=== PATIENT | female | born 1960 | race Caucasian/White ===

== ENCOUNTER 2018-01-27 07:41 | Emergency (ER) | payer OTHER ==
[2018-01-27 08:20] LABS: BASOPHILS % (AUTO) 0.5 %; EOSINOPHILS # (AUTO) 0.3 10^3/uL (0.0-0.7); EOSINOPHILS % (AUTO) 4.7 %; HGB - HEMOGLOBIN 15.1 g/dL (12.0-16.0); LYMPHOCYTES # (AUTO) 2.5 10^3/uL (1.5-3.5); LYMPHOCYTES % (AUTO) 34.3 %; MEAN CORPUSCULAR HEMOGLOBIN 28.9 pg (27.0-31.0); MEAN CORPUSCULAR HGB CONC 34.4 g/dL (32.0-36.0); MEAN CORPUSCULAR VOLUME 84.1 fL (81.0-99.0); MEAN PLATELET VOLUME 6.9 fL (7.9-10.8); MONOCYTES # (AUTO) 0.4 10^3/uL (0.0-1.0); MONOCYTES % (AUTO) 5.9 %; NEUTROPHILS % (AUTO) 54.6 %; PLT - PLATELET COUNT 321 10^3/uL (130-450); RED BLOOD COUNT 5.21 10^6/uL (4.20-5.40); RED CELL DISTRIBUTION WIDTH 13.7 % (12.0-15.0); WHITE BLOOD COUNT 7.3 x10^3/uL (4.8-10.8)
[2018-01-27] MEDS ORDERED: LIDOCAINE VISCOUS 2% 15 ML UDC MM STA (08:27)
[2018-01-27] MEDS ORDERED: MAG HYDROX/AL HYDROX/SIMETH 30 ML UDC PO STA (08:27)
[2018-01-27 08:29] LABS: ALBUMIN 4.2 g/dL (3.2-5.5); ALBUMIN/GLOBULIN RATIO 1.3 (1.0-2.2); BILIRUBIN,TOTAL 0.4 mg/dL (0.2-1.0); CALCIUM 8.9 mg/dL (8.5-10.3); CREATININE 0.6 mg/dL (0.4-1.0); TOTAL PROTEIN 7.5 g/dL (6.7-8.2)
--- NOTE | 2018-01-27 08:54 | XRAY Report ---
Reason: chest pain Procedure Date: 01/27/2018 Accession Number: [id number] / [id number] Procedure: XR - Chest 1 View X-Ray CPT Code: 90151 FULL RESULT: EXAM: CHEST RADIOGRAPHY EXAM DATE: 01/27/2018 08:18 AM. CLINICAL HISTORY: Chest pain. COMPARISON: None. TECHNIQUE: 1 view. FINDINGS: Lungs/Pleura: There is mild hazy bibasilar opacity. No other focal airspace opacity. No pleural effusion or pneumothorax. Mediastinum: Cardiomediastinal silhouette and pulmonary vasculature are within normal limits. Other: None. IMPRESSION: Suspect mild bibasilar atelectasis. Otherwise no acute cardiopulmonary abnormality. RADIA
[2018-01-27 09:23] VITALS: BP 116/88
--- NOTE | 2018-01-27 09:43 | ED Physician Documentation ---
PD HPI CHEST PAIN - Stated complaint Stated Complaint: CHEST PX/DIZZY - Chief complaint Chief Complaint: Cardiac - History obtained from History obtained from: Patient, Family - History of Present Illness Timing - onset: Enter time (629), Today Timing - onset during: Sleep Timing - duration: Minutes Timing - details: Abrupt onset, Still present Quality: Pressure, Sharp, Pain Location: Substernal, Epigastric Radiation: Abdominal. No: Jaw, Neck, Back Worsened by: No: Exertion, Inspiration Associated symptoms: Feeling faint / dizzy (dizzy). No: Shortness of air, Diaphoresis, Nausea, Vomiting Similar symptoms before: Diagnosis (gerd) Recently seen: Not recently seen - Additional information Additional information: 57-year-old female with history of reflux has awakened this morning with severe chest pain and she feels that this is worse than her usual heartburn and she is concerned about the possibility of this being her heart. Review of Systems Constitutional: denies: Fever, Chills Eyes: denies: Decreased vision Ears: denies: Ear pain Nose: denies: Congestion Throat: denies: Sore throat Cardiac: reports: Chest pain / pressure. denies: Palpitations Respiratory: denies: Dyspnea, Cough GI: reports: Abdominal Pain. 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 - Present Medications Home Medications: Ambulatory Orders Medication Instructions Recorded Confirmed Pantoprazole [Protonix] 40 mg PO 01/27/18 Sucralfate [Carafate] 1 gm PO ACHS #60 tablet 01/27/18 - Allergies Allergies/Adverse Reactions: Allergies Allergy/AdvReac Type Severity Reaction Status Date / Time No Known Drug Allergies Allergy Verified 01/27/18 07:52 - Social History Does the pt smoke?: No Smoking Status: Never smoker Does the pt drink ETOH?: No Does the pt have substance abuse?: No - Immunizations Immunizations are current?: Yes PD ED PE NORMAL - Vitals Vital signs reviewed: Yes (hypertensive ) - General General: Alert and oriented X 3, No acute distress, Well developed/nourished - HEENT HEENT: Atraumatic, PERRL, EOMI - Neck Neck: Supple, no meningeal sign, No bony TTP - Cardiac Cardiac: RRR, No murmur - Respiratory Respiratory: No respiratory distress, Clear bilaterally - Abdomen Abdomen: Soft, Non tender - Back Back: No CVA TTP, No spinal TTP - Derm Derm: Normal color, Warm and dry, No rash - Extremities Extremities: No deformity, No edema - Neuro Neuro: Alert and oriented X 3, 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, No motor deficit, No sensory deficit, Normal speech Eye Opening: Spontaneous Motor: Obeys Commands Verbal: Oriented GCS Score: 15 - Psych Psych: Normal mood, Normal affect Results - Vitals Vitals: Vital Signs - 24 hr 01/27/18 01/27/18 01/27/18 07:45 08:00 08:33 Temperature 36.7 C Heart Rate 60 71 60 Respiratory 16 24 14 Rate Blood Pressure 118/106 H 143/95 H 121/75 O2 Saturation 99 96 96 01/27/18 09:22 Temperature Heart Rate 67 Respiratory 18 Rate Blood Pressure 116/88 H O2 Saturation 95 Oxygen O2 Source Room air - EKG (time done) 0747 Rate: Rate (enter#) (58) Rhythm: NSR Ischemia: Non specific changes Compare to prior EKG: Old EKG unavailable Computer interpretation: Agree with computer - Labs Labs: Laboratory Tests 01/27/18 01/27/18 01/27/18 07:59 07:59 07:59 WBC 7.3 RBC 5.21 Hgb 15.1 Hct 43.9 MCV 84.1 MCH 28.9 MCHC 34.4 RDW 13.7 Plt Count 321 MPV 6.9 L Neut # (Auto) 4.0 Lymph # (Auto) 2.5 [place] # (Auto) 0.4 Eos # (Auto) 0.3 Baso # (Auto) 0.0 Absolute Nucleated RBC 0.00 Nucleated RBC % 0.0 Sodium 138 Potassium 3.9 Chloride 105 Carbon Dioxide 25 Anion Gap 8.0 BUN 14 Creatinine 0.6 Estimated GFR (MDRD) 103 Glucose 98 Calcium 8.9 Total Bilirubin 0.4 AST 23 ALT 29 Alkaline Phosphatase 83 Troponin I < 0.04 Total Protein 7.5 Albumin 4.2 Globulin 3.3 Albumin/Globulin Ratio 1.3 Lipase 34 - Rads (name of study) chest 1 view Radiology: Prelim report reviewed (Impression: Suspect mild bibasilar atelectasis. Otherwise no acute cardiopulmonary abnormality.), EMP read indepedently, See rad report PD MEDICAL DECISION MAKING - ED course Complexity details: reviewed results, re-evaluated patient, considered differential, d/w patient, d/w family ED course: Previously well 57-year-old female with a history of reflux has developed acute chest pain this morning that she feels might be her reflux. She has resolution of her pain at about the time of my evaluation and she does have return of her pain and this is promptly improved with use of viscous lidocaine and Mylanta. Her electrocardiogram and diagnostic studies are otherwise unremarkable. She is instructed in the use of Pepcid AC or H2 safia in place of her proton pump inhibitor and we will add in Carafate. Departure - Departure Disposition: 01 Home, Self Care Clinical Impression: Gastroesophageal reflux disease Qualifiers: Esophagitis presence: with esophagitis Qualified Code(s): K21.0 - Gastro- esophageal reflux disease with esophagitis Condition: Stable Instructions: ED PUD Vs Gastritis, ED GERD Follow-Up: JANETTE SWAN [Primary Care Provider] - Prescriptions: Sucralfate [Carafate] 1 gm PO ACHS #60 tablet
== END 2018-01-27 09:55 | disposition home or self-care (01) ==
LOC: ED 07:41
DX: K21.0 Gastro-esophageal reflux disease with esophagitis (principal)
CPT/HCPCS: 36415; 71045; 80053; 83690; 84484; 85025; 93005; 99284; A9270

== ENCOUNTER 2018-08-27 11:22 | Outpatient (CLI) | payer OTHER ==
[2018-08-27 12:49] VITALS: BP 100/60
--- NOTE | 2018-08-27 12:49 | CONSULTATION NOTE ---
Information from patient questionnaire entered by Cristiane Ochoa. I have reviewed and concur with the information entered by Cristiane Ochoa. This document represents the service I personally performed and the decisions made by me, Laina Carmichael MD, [facility]. - History of Present Illness Chief Complaint: Other (Eye doctor suggested due to glucoma concerns) The patient tells me that she normally goes to bed around 10:00-11:00 pm, and it takes her approximately 15-60 minutes to fall asleep. She has been told that she snores loudly and irregularly at night. She hasbeen observed to stop breathing in her sleep. Her bed partner has to sleep in another room due to the loudness of her snoring. She can recall waking up on the average of 2 times during the night. Most of the time she wakes up because of using the bathroom and gasping for air once a week. She has occasionally awakened for her own snoring, and having to gasp for air. There is not a lot of tossing and turning in her sleep. There is no somniloquy (sleep talking) or somnambulism (sleep walking). She has never experienced sleep paralysis, cataplexy, or symptoms of restless leg syndrome.Generally she can recall having dreams. She usually wakes up at 5:30-6:30 am and feels refreshed. She usually does not have a morning headache. During the day she complains of feeling sleepy and fatigued. She has fallen asleep while driving and has gone out of the yas, no accident. She does not nap during the day. If she naps, upon falling asleep during the day she admits to having vivid dreams. She denies having impaired concentration during the day. 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 Patient is and lives in [place]. Smoked in the past 12 months: No Alcohol use: No Caffeine use: Yes Amount and frequency: 1 cup a day - Family History Family history of sleep disordered breathing: Yes Family Hx Sleep Apnea: Father: Snoring, Grandparent: Snoring - Review of Systems Weight loss over past 5 years: 10 Cardiovascular: denies: high blood pressure, palpitations, chest pain, irregular heart rate or pulse, leg or foot swelling, have to sleep sitting up, other: Respiratory: denies: shortness of breath, wheeze, sputum production, chronic cough, other: Gastrointestinal: reports: heartburn, diarrhea Urinary: denies: incontinence, frequency, urgency, impotence, other: Neurological: denies: headaches, seizure, head trauma, disorientation, speech dysfunction, gait or balance problems, fainting or unconsciousness, other: Psychiatric: reports: claustrophobia Ear/Nose/Throat: reports: sinus problems, wisdom teeth removed Endocrine: denies: thyroid disease, history of goiter, sluggishness, too hot or cold, excessive thirst, increased appetite, increased urination, unexplained weakness, other: Musculoskeletal: reports: neck pain Immunologic: denies: sneezing, rash, itching, allergies to food or environment, other: - Physical Examination Vital signs obtained and documented by: Dr. Carmichael Blood Pressure: 100/60 Cuff size: regular Heart Rate: 78 O2 Saturation: 98 Height: 5 ft 4 in Weight (kg): 68.039 kg Body Mass Index: 25.7 BMI Classification: Overweight Neck circumference: 15.5 Mood/affect: normal HEENT: No craniofacial malformation Nostrils: patent to airflow Turbinates: normal Septum: midline Mouth and throat: normal Soft palate: long Hard palate: normal Uvula: normal Tongue: enlarged in size with teeth cespedes on lateral edges Tonsils: small Chin and jaw: normal size and position Neck: normal w/o lymphadenopathy or thyromegaly Heart: regular rate and rhythm Lungs: clear bilaterally Abdomen: soft, non-tender Extremities: no edema or clubbing Neurologic: intact, no focal deficits - Impression 1. Suspected Obstructive Sleep Apnea-Hypopnea Syndrome, as suggested by a history of loud and irregular snoring, observed cessation of breath while asleep, gasping or choking in sleep, and excessive daytime sleepiness. Narrow oropharynx and obesity are common predisposing factors for obstructive sleep apnea-hypopnea syndrome. I recommend proceeding to polysomnography to confirm the diagnosis and to assess severity. I informed the patient of what the sleep studies involve and after some discussion, obtained agreement to proceed. The pathophysiology of obstructive sleep apnea-hypopnea syndrome was discussed with the patient and health risks of cardiovascular and cerebrovascular disease if not treated. - Plan Schedule polysomnography and return in 1-2 weeks after the study to discuss result and initiate therapy. Avoid long distance driving or driving when feeling sleepy. Avoid alcohol, sedative and muscle relaxant around bedtime. Attempt to lose weight. Review instructions provided by trained office staff on how to prepare for the sleep study. Return for follow-up after sleep study completed. I spent 100% of this 15 minute visit face to face with the patient with greater than 50% of this was spent time counseling the patient and coordination of care.
== END 2018-08-27 11:23 | disposition home or self-care (01) ==
LOC: SC 11:22
PROVIDERS: ATTEND Internal Medicine Pulmonary Disease
DX: R06.83 Snoring (principal); R06.81 Apnea, not elsewhere classified; G47.10 Hypersomnia, unspecified
CPT/HCPCS: 99203; 99212

== ENCOUNTER 2023-06-11 21:13 | Outpatient (CLI) | payer OTHER | END 2023-06-11 23:59 | disposition critical access hospital (66) | LOC: EMS 21:13 | DX: R42 Dizziness and giddiness (principal); R11.0 Nausea | CPT/HCPCS: A0425; A0427 ==

== ENCOUNTER 2023-06-11 21:36 | Emergency (ER) | payer OTHER ==
[2023-06-11] MEDS ORDERED: iohexoL-300 100 ML VIAL ONE (22:05)
[2023-06-11] MEDS: MECLIZINE 12.5 MG TABLET PO STA (22:15)
[2023-06-11] MEDS: SODIUM CHLORIDE 0.9% 1,000 ML IV STA (22:16)
[2023-06-11 22:22] LABS: BASOPHILS % (AUTO) 0.4 %; EOSINOPHILS # (AUTO) 0.1 10^3/uL (0.0-0.7); EOSINOPHILS % (AUTO) 1.2 %; HCT - HEMATOCRIT 42.4 % (37.0-47.0); HGB - HEMOGLOBIN 14.4 g/dL (12.0-16.0); LYMPHOCYTES # (AUTO) 1.6 10^3/uL (1.5-3.5); LYMPHOCYTES % (AUTO) 21.7 %; MEAN CORPUSCULAR HEMOGLOBIN 28.2 pg (27.0-31.0); MEAN PLATELET VOLUME 8.4 fL (7.9-10.8); MONOCYTES # (AUTO) 0.3 10^3/uL (0.0-1.0); MONOCYTES % (AUTO) 4.6 %; NEUTROPHILS # (AUTO) 5.4 10^3/uL (1.5-6.6); NEUTROPHILS % (AUTO) 71.8 %; PLT - PLATELET COUNT 300 10^3/uL (130-450); RED BLOOD COUNT 5.11 10^6/uL (4.20-5.40); WHITE BLOOD COUNT 7.5 x10^3/uL (4.8-10.8)
[2023-06-11 22:31] LABS: ALBUMIN 4.3 g/dL (3.2-5.5); ALBUMIN/GLOBULIN RATIO 1.5 (1.0-2.2); BILIRUBIN,TOTAL 0.3 mg/dL (0.2-1.0); CALCIUM 9.5 mg/dL (8.5-10.3); CREATININE 0.6 mg/dL (0.6-1.3); POTASSIUM 3.1 mmol/L (3.5-4.5); TOTAL PROTEIN 7.2 g/dL (6.4-8.9)
--- NOTE | 2023-06-11 22:39 | ED Physician Documentation ---
History of Present Illness - Stated complaint Stated Complaint: DIZZY - Chief complaint Chief Complaint: Neuro - History obtained from History obtained from: Patient, EMS - Additonal information Additional information: Patient is a 63-year-old female without any significant past medical history presenting for evaluation of vertigo. She states she has had episodes of this in the past but they are usually brief. Around 530 this evening she was lying on the floor doing some stretches when she started feeling the sudden onset of vertigo. She reports feeling room spinning and off-balance. She was able to stand up right away. That episode eventually resolved and she was able to get up and be in the kitchen but approximately 30 to 40 minutes later it started again and she almost fell but her caught her and helped her lay down. She denies hitting her head or headache. She tried to see if her symptoms would get better on their own but they would not and she was unable to stand up due to the vertigo so EMS was called. She was given a dose of Zofran. Symptoms are worse when she turns her head to the left. She does see a chiropractor and her last manipulation was in April. Denies chest pain or shortness of air, abdominal symptoms, extremity weakness. Review of Systems Constitutional: denies: Fever Cardiac: denies: Chest pain / pressure Respiratory: denies: Dyspnea GI: reports: Nausea. 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 - Present Medications Home Medications: Ambulatory Orders Medication Instructions Recorded Confirmed Pantoprazole [Protonix] 40 mg PO 01/27/18 Sucralfate [Carafate] 1 gm PO ACHS #60 tablet 01/27/18 Meclizine [Antivert] 25 mg PO Q6H PRN #15 tablet 06/11/23 Ondansetron Odt [Zofran] 4 mg TL Q6H PRN #10 tablet 06/11/23 - Allergies Allergies/Adverse Reactions: Allergies Allergy/AdvReac Type Severity Reaction Status Date / Time No Known Drug Allergies Allergy Verified 06/11/23 21:40 - Social History Does the pt smoke?: No Smoking Status: Never smoker Does the pt drink ETOH?: No Does the pt have substance abuse?: No - Immunizations Immunizations are current?: Yes PD ED PE NORMAL - General General: Alert and oriented X 3, No acute distress, Well developed/nourished - HEENT HEENT: Atraumatic, PERRL, EOMI, Moist mucous membranes, Pharynx benign, Other (+Cam Hallpike with head turning to L) - Neck Neck: Supple, no meningeal sign, No bony TTP - Cardiac Cardiac: RRR, Strong equal pulses - Respiratory Respiratory: No respiratory distress, Clear bilaterally - Abdomen Abdomen: Normal bowel sounds, Soft, Non tender, Non distended - Derm Derm: Warm and dry - Extremities Extremities: No deformity - Neuro Neuro: Alert and oriented X 3, 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 Relevant findings are: Rate 60, normal sinus rhythm, no STEMI, QTc 424 - Labs Labs: Laboratory Tests 06/11/23 06/11/23 22:14 22:14 WBC 7.5 RBC 5.11 Hgb 14.4 Hct 42.4 MCV 83.0 MCH 28.2 MCHC 34.0 RDW 13.0 Plt Count 300 MPV 8.4 Neut # (Auto) 5.4 Lymph # (Auto) 1.6 [place] # (Auto) 0.3 Eos # (Auto) 0.1 Baso # (Auto) 0.0 Absolute Nucleated RBC 0.00 Nucleated RBC % 0.0 Sodium 136 Potassium 3.1 L Chloride 103 Carbon Dioxide 21 Anion Gap 12.0 BUN 16 Creatinine 0.6 Estimated GFR (MDRD) 101 Glucose 126 H Calcium 9.5 Total Bilirubin 0.3 AST 18 ALT 18 Alkaline Phosphatase 98 Total Protein 7.2 Albumin 4.3 Globulin 2.9 Albumin/Globulin Ratio 1.5 Lipase 29 PD Medical Decision Making - ED course Complexity details: reviewed results, re-evaluated patient, d/w patient, d/w family ED course: Patient is a 63-year-old female with vertigo. She reports having had prior episodes but did not seek medical care for evaluation as those episodes did not last very long and she was usually able to manage them at home. Tonight she was unable to get her symptoms to resolve and thus has presented to the emergency department via EMS. Her symptoms are worse with head turning to the left.Her history and exam suggest peripheral vertigo but she does report seeing a chiropractor and did have neck manipulation last month. Therefore I did obtain a CT angio of the head and neck Which is negative for a dissection.Labs were reviewed including CBC, chemistries. Potassium of 3.1 which patient was able to tolerate oral replacement. She is feeling better here after Zofran and meclizine. She is able to ambulate without issue. Patient advised on likely diagnosis as well as need for close follow-up. Patient advised on return precautions For any worsening symptoms. Departure - Departure Disposition: 01 Home, Self Care Clinical Impression: Peripheral vertigo, Hypokalemia Condition: Stable Instructions: ED BPV Vertigo Prescriptions: Meclizine [Antivert] 25 mg PO Q6H PRN #15 tablet PRN Reason: Vertigo Ondansetron Odt [Zofran] 4 mg TL Q6H PRN #10 tablet PRN Reason: Nausea / Vomiting Comments: You were evaluated for vertigo. I have sent prescriptions for medications to help you with your vertigo symptoms to [facility] in [place]. Please YouTube videos of the Brynn maneuver as this may help When you are experiencing vertigo. I would recommend close follow-up with your primary care provider. Return to the ER with any worsening. Forms: PCP List Discharge Date/Time: 06/12/23 00:02
[2023-06-11] MEDS: ONDANSETRON 4 MG/2 ML VIAL IVP STA (22:54)
[2023-06-11] MEDS: POTASSIUM BICARB 25 MEQ TABLET PO ONE (22:54)
[2023-06-11] MEDS: iohexoL-300 100 ML VIAL IVP ONE (22:56)
--- NOTE | 2023-06-11 23:10 | CT Report ---
PROCEDURE: Angio Head/Neck INDICATIONS: vertigo/ history of Chiropractic neck manipulation TECHNIQUE: After the administration of intravenous contrast, 1 mm thick sections acquired from the aortic arch t hrough the [place]. 3-dimensional dxbfmxr-mrorfbvfs-kjsaylllwx (MIP) and/or volume renderin g reformats were acquired of the central intracranial vasculature and neck separately. For radiation dose reduction, the following was used: automated exposure control, adjustment of mA and/or kV acco rding to patient size. CONTRAST: Omni 300, 80mls COMPARISON: None. FINDINGS: Image quality: There is prominent artifact within portions of the exam most notable within the V4 seg ment of the vertebral arteries bilaterally. HEAD CT: CSF Spaces: Basal cisterns are patent. No extra-axial fluid collections. Ventricles are normal in size and shape. Brain: No significant abnormality is seen for scanning technique. Skull and face: Calvarium and visualized facial bones appear intact, without suspicious lesions. Sinuses: Visualized sinuses and mastoids are clear. HEAD CT ANGIOGRAPHY: Anterior circulation: Intracranial internal carotid arteries are normal in size and flow. The flow within the paired anterior cerebral arteries is normal and symmetric. The flow within the middle cer ebral arteries is normal and symmetric. The anterior communicating artery is seen. No aneurysms are seen. Posterior circulation: Visualized portions of the vertebral arteries demonstrate normal caliber, and join to form a normal appearing basilar artery. Flow within the posterior cerebral arteries is norm al and symmetric. No aneurysms are seen. NECK CT ANGIOGRAPHY: Carotid system: The great vessels demonstrate a conventional anatomy as they arise from the aortic a rch. The origins of the common carotid arteries appear patent. The common carotid arteries demonstr ate normal caliber and courses. The bifurcation regions are both widely patent. The internal caroti d arteries demonstrate normal calibers and courses. Posterior circulation: There is a left vertebral artery dominance. The origins of the vertebral hattie eliazar both appear widely patent. The more superior extracranial portions of both vertebral arteries a lso demonstrate normal courses and calibers. They join to form a normal appearing basilar artery. Soft tissues: Visualized neck soft tissues demonstrate no suspicious abnormalities. Bones: No suspicious bony lesions. Visualized cervical spine appears normally aligned. IMPRESSION: No significant intracranial arterial abnormality is seen. It is noted however that artifact is prese nt limiting evaluation of portions of the V4 segment of the vertebral arteries bilaterally. If sympto ms persist, MRI /MRA head and neck is recommended for further evaluation. No significant abnormality is seen within the arteries of the neck. The estimate of stenosis included in the report of the imaging study was calculated using the NASCET method Reviewed by: Bharati Fang MD on 06/11/2023 11:08 PM PDT Approved by: Bharati Fang MD on 06/11/2023 11:08 PM PDT Station ID: [id number]
[2023-06-12 00:06] VITALS: BP 123/53; O2SAT 99
== END 2023-06-12 00:02 | disposition home or self-care (01) ==
LOC: EDUNIT# → ED 21:36
DX: H81.399 Other peripheral vertigo, unspecified ear (principal); E87.6 Hypokalemia
CPT/HCPCS: 36415; 70496; 70498; 80053; 83690; 85025; 93005; 96374; 99284; A9270; Q9967